=== PATIENT | male | born 1985 | race Caucasian/White ===

== ENCOUNTER 2021-03-18 05:14 | Day surgery (SDC) | payer OTHER ==
[2021-03-08 16:13] LABS: BASOPHILS # (AUTO) 0.1 X10'3 (0-0.2); BASOPHILS % (AUTO) 0.4 % (0-1); EOSINOPHILS # (AUTO) 0.2 X10'3 (0-0.9); EOSINOPHILS % (AUTO) 1.8 % (0-6); LYMPHOCYTES # (AUTO) 2.7 X10'3 (1.1-4.8); LYMPHOCYTES % (AUTO) 19.4 % (21-51); MEAN CORPUSCULAR HEMOGLOBIN 29.1 PG (27.0-31.0); MEAN CORPUSCULAR HGB CONC 32.9 g/dL (33.0-36.5); MEAN CORPUSCULAR VOLUME 88.5 FL (78-98); MEAN PLATELET VOLUME 7.6 FL (7.4-10.4); MONOCYTES # (AUTO) 1.1 X10'3 (0-0.9); MONOCYTES % (AUTO) 7.9 % (2-12); NEUTROPHILS # (AUTO) 9.8 X10'3 (1.8-7.7); NEUTROPHILS % (AUTO) 70.5 % (42-75); PRE OP HEMATOCRIT 48.8 % (42.0-52.0); PRE OP HEMOGLOBIN 16.1 g/dL (14.0-17.9); PRE OP PLATELET COUNT 397 X10'3 (140-440); RED BLOOD COUNT 5.51 X10'6 (4.70-6.10); RED CELL DISTRIBUTION WIDTH 14.5 % (11.5-14.5)
[2021-03-08 16:18] LABS: ALBUMIN 3.6 G/DL (3.4-5.0); ALKALINE PHOSPHATASE 85 IU/L (46-116); BLOOD UREA NITROGEN 19 MG/DL (7-18); BUN/CREATININE RATIO 13.7 (5.4-32.0); CHLORIDE 100 MMOL/L (99-107); CREATININE 1.39 MG/DL (0.60-1.10); PRE OP ALT 36 U/L (30-65); PRE OP ANION GAP 10 (8-16); PRE OP AST 31 U/L (10-37); PRE OP BILIRUB, TOTAL 0.5 MG/DL (0.0-1.0); PRE OP GLUCOSE 71 MG/DL (70-104); PRE OP POTASSIUM 4.2 MMOL/L (3.4-5.1); PRE OP SODIUM 139 MMOL/L (135-145); TOTAL PROTEIN 7.1 G/DL (6.4-8.2); eGFR 57 ML/MIN
[2021-03-08 16:22] LABS: CLARITY,URINE CLEAR (Clear); COLOR,URINE YELLOW (Yellow); GLUCOSE, URINE NEGATIVE (Neg); KETONES,URINE NEGATIVE (Neg); LEUKOCYTE ESTERASE ,URINE NEGATIVE (Neg); NITRITES, URINE NEGATIVE (Neg); OCCULT BLOOD,URINE NEGATIVE (Neg); PROTEIN,URINE NEGATIVE (Neg); UROBILINOGEN,URINE 0.2 E.U/dL (0.2-1.0)
[2021-03-08 16:32] LABS: UA COLLECTION TYPE CLN CATCH MIDSTREAM
[~2021-03-18] VITALS: Ht 172.7 cm; Wt 94.0 kg
[2021-03-18] VITALS (10 sets, daily range): BP systolic 106–148; BP diastolic 55–78
[~2021-03-18 05:14] MED LIST: IBUP-24 PO; LISI20TA28 PO; MELO-102 PO; OMEP40CA21 PO; PRAZ2CAP2 PO; ZINC50TA67 PO; ringers solution, lacted 1,000 ML IV SCH
[2021-03-18] MEDS ORDERED: cefazolin/dext.iso 2gm/100ml IV ONE (05:30)
[2021-03-18] MEDS ORDERED: famotidine 20mg tablet PO ONE (06:05)
[2021-03-18] MEDS ORDERED: bacitracin 15gm ointment TP ONE (07:00)
[2021-03-18] MEDS ORDERED: ACET-2119 PO (07:06)
[2021-03-18] MEDS ORDERED: sevoflurane 250ml liquid IH ONE (07:12)
[2021-03-18] MEDS ORDERED: dexamethasone sod phosphate 10mg/ml inj ONE (07:12)
[2021-03-18] MEDS ORDERED: LIDOcaine 1%/PF 5ML 10 MG/ML VIAL ONE (07:12)
[2021-03-18] MEDS ORDERED: fentaNYL/PF 50MCG/1 ML 2ML syringe ONE (07:22)
[2021-03-18] MEDS ORDERED: MIDAZolam 1 MG/ML 5ML VIAL ONE (07:22)
[2021-03-18] MEDS ORDERED: ROPIVAcaine 0.5% (5mg/ml) 30ml vial ONE (07:23)
[2021-03-18] MEDS ORDERED: propofol inj 20 ML IV ONE (07:23)
[2021-03-18] MEDS ORDERED: ondansetron/PF 4mg/2ml inj ONE (07:53)
[2021-03-18] MEDS ORDERED: proCHLORperazine 10 MG/2 ml inj IV PRN (08:20)
[2021-03-18] MEDS ORDERED: morphine 2 MG/ML inj. syringe IV PRN (08:20)
[2021-03-18] MEDS ORDERED: ondansetron/PF 4mg/2ml inj IV PRN (08:20)
[2021-03-18] MEDS ORDERED: meperidine/PF 25mg/ml syringe IV PRN ×3 (08:20)
[2021-03-18] MEDS ORDERED: morphine 4 MG/ML inj SYRINge IV PRN (08:20)
[2021-03-18] MEDS ORDERED: ringers solution, lacted 1,000 ML IV SCH (08:20)
[2021-03-18] MEDS ORDERED: morphine 10mg/ml inj. ONE (09:16)
--- NOTE | 2021-03-18 09:50 | NUR ---
ADMITTED TO PACU FROM OR ACCOMPANIED BY ANESTHESIA. INTIAL PHYSICAL ASSESSMENT DONE AND RECORDED. REPORT RECEIVED FROM ANESTHESIA.
--- NOTE | 2021-03-18 11:15 | NUR ---
DISCHARGE CRITERIA MET, DISCHARGE INSTRUCTIONS GIVEN, DEMONSTRATES VERBAL UNDERSTANDING. DISCHARGED HOME IN GOOD CONDITION.
== END 2021-03-18 11:15 | disposition home or self-care (01) ==
LOC: PAS 05:14
PROVIDERS: ATTEND Podiatrist Foot & Ankle Surgery
DX: M25.375 Other instability, left foot (principal); M25.372 Other instability, left ankle; M79.672 Pain in left foot; G89.18 Other acute postprocedural pain; Z79.899 Other long term (current) drug therapy
CPT/HCPCS: 27696; 29895; 36415; 64445; 73600; 76000; 76942; 80053; 81003; 82948; 85025; 93005; A6222; C1713; J1100; J2250; J2270; J2405; J2704; J3010; U0003; U0005; Z7506; Z7508; Z7512; A4618; A6449; A7000; J2795; J7120